=== PATIENT | male | born 1975 | race Caucasian/White ===

== ENCOUNTER 2017-10-24 19:16 | Inpatient (IN) | payer MEDICAID ==
[~2017-10-24] VITALS: Ht 170.2 cm; Wt 127.0 kg
[2017-10-25] MEDS ORDERED: SODIUM CHLORIDE 0.9% 1,000 ML IV ONE (01:40)
[2017-10-25] MEDS ORDERED: KETOROLAC 30MG/ML VIAL IV STA (01:40)
[2017-10-25 02:32] LABS: BASOPHILS % 0.3 % (0.0-2.0); EOSINOPHILS % 0.1 % (0.0-5.0); HEMATOCRIT. 35.1 % (42.0-52.0); HEMOGLOBIN. 11.8 g/dL (14.0-18.0); LYMPHOCYTES % 20.2 % (20.0-50.0); MEAN CORPUSCULAR HEMOGLOBIN 29.1 pg (28.0-32.0); MEAN CORPUSCULAR VOLUME 86.7 fL (80.0-94.0); MONOCYTES % 7.8 % (2.0-8.0); NEUTROPHILS % 71.6 % (40.0-76.0); PLATELET 239 x1000/uL (130-400); RED BLOOD CELL COUNT 4.05 mill/uL (4.7-6.1); RED CELL DISTRIBUTION WIDTH 14.2 % (11.6-14.6)
[2017-10-25 02:40] LABS: CHLORIDE 109 mEq/L (98-107)
[2017-10-25 02:47] LABS: CARBON DIOXIDE 24 mEq/L (21-32)
[2017-10-25 05:01] LABS: CLARITY URINE CLEAR (CLEAR); COLOR URINE YELLOW (YELLOW); KETONES URINE TRACE (NEGATIVE); LEUKOCYTE ESTERASE URINE NEGATIVE (NEGATIVE); NITRITE URINE NEGATIVE (NEGATIVE); OCCULT BLOOD URINE 1+ (NEGATIVE); PH URINE 5.5 (4.5-8.0); PROTEIN URINE 4+ (NEGATIVE); SPECIFIC GRAVITY URINE 1.027 (1.005-1.030); UROBILINOGEN URINE 0.2 E.U./dL (0.2-1.0)
[2017-10-25] MEDS ORDERED: ACETAMINOPHEN 325MG TABLET PO PRN (05:45)
[2017-10-25] MEDS ORDERED: ENOXAPARIN 40MG/0.4ML SYR SUBCUT SCH ×2 (05:45→11:00)
[2017-10-25] MEDS ORDERED: CLONIDINE 0.1MG TABLET PO PRN (05:45)
[2017-10-25] MEDS ORDERED: GUAIFENESIN 200MG/10ML SUGAR FREE UDC PO PRN (05:45)
[2017-10-25] MEDS ORDERED: MAGNESIUM/ALUMINUM HYDROXIDE/SIMETHICONE 30ML UDC PO PRN (05:45)
[2017-10-25] MEDS ORDERED: ONDANSETRON HCL 4MG/2ML VIAL IV PRN (05:45)
[2017-10-25] MEDS ORDERED: LORAZEPAM 2MG/ML CPJ IV PRN (05:45)
[2017-10-25] MEDS ORDERED: DOCUSATE SODIUM 100MG CAPSULE PO PRN (05:45)
[2017-10-25] MEDS ORDERED: DIPHENHYDRAMINE 50MG/ML VIAL IV PRN (05:45)
[2017-10-25] MEDS ORDERED: MORPHINE SULFATE 4 MG/ML CPJ (NOT FOR IM USE) IV PRN (05:45)
[2017-10-25] MEDS ORDERED: IPRATROPIUM/ALBUTEROL 0.5-3(2.5)MG/3ML NEB INH PRN (05:45)
[2017-10-25] MEDS ORDERED: HYDROCODONE/ACETAMINOPHEN 5/325MG TABLET PO PRN (05:45)
[2017-10-25 06:22] LABS: CARBON DIOXIDE 25 mEq/L (21-32); CHLORIDE 110 mEq/L (98-107); TROPONIN I < 0.02 ng/mL (0.00-0.04)
[2017-10-25] MEDS ORDERED: LEVOFLOXACIN 500MG PREMIX 100 ML IV NR (06:25)
[2017-10-25] MEDS: SODIUM CHLORIDE 0.45% 1,000 ML IV SCH ×2 (06:47→08:09)
[2017-10-25] MEDS: LEVOFLOXACIN 500MG PREMIX 100 ML IV SCH ×2 (06:47→08:10)
[2017-10-25 07:56] LABS: CREATINE KINASE 155 IU/L (39-308)
[2017-10-25 10:15] VITALS: BP 156/87
[2017-10-25] MEDS ORDERED: NA PHOS,M-B/NA PHOS,DI-BA ENEMA 118ML PR PRN (10:30)
[2017-10-25 10:40] VITALS: BP 156/87
[2017-10-25 10:58] VITALS: BP 156/87
[2017-10-25] MEDS: ENOXAPARIN 40MG/0.4ML SYR SUBCUT SCH ×2 (11:00→21:00)
[2017-10-25] MEDS ORDERED: INSLIS SUBCUT (11:28)
[2017-10-25] MEDS ORDERED: GABA-531 PO (11:28)
[2017-10-25] MEDS ORDERED: TRIC54 PO (11:28)
[2017-10-25 12:00] VITALS: BP 150/76
[2017-10-25] MEDS ORDERED: DEXTROSE 50% WATER 50ML SYRINGE IV PRN (13:30)
[2017-10-25] MEDS: ASPIRIN 81MG EC TABLET PO SCH (13:43)
[2017-10-25 16:00] VITALS: BP 166/84
[2017-10-25] MEDS: BLOOD SUGAR DIAGNOSTIC STRIP TEST SCH ×2 (17:13→21:11)
[2017-10-25] MEDS: INSULIN LISPRO 100 UNITS/ML SUBCUT SCH ×2 (17:30→21:20)
[2017-10-25 20:00] VITALS: BP 123/79
[2017-10-25] MEDS: AMLODIPINE 10MG TABLET PO SCH (21:00)
[2017-10-26] VITALS: BP 133/84
[2017-10-26 04:00] VITALS: BP 159/89
[2017-10-26] MEDS: BLOOD SUGAR DIAGNOSTIC STRIP TEST SCH (06:46)
[2017-10-26 07:35] LABS: BASOPHILS % 0.3 % (0.0-2.0); EOSINOPHILS % 0.9 % (0.0-5.0); HEMATOCRIT. 34.4 % (42.0-52.0); HEMOGLOBIN. 11.5 g/dL (14.0-18.0); LYMPHOCYTES % 19.1 % (20.0-50.0); MEAN CORPUSCULAR HEMOGLOBIN 28.7 pg (28.0-32.0); MEAN PLATELET VOLUME 9.2 fl (7.4-10.4); MONOCYTES % 5.3 % (2.0-8.0); NEUTROPHILS % 74.4 % (40.0-76.0); PLATELET 252 x1000/uL (130-400); RED BLOOD CELL COUNT 3.99 mill/uL (4.7-6.1)
[2017-10-26 08:00] VITALS: BP 158/89
[2017-10-26] MEDS: INSULIN LISPRO 100 UNITS/ML SUBCUT SCH (08:35)
[2017-10-26 08:39] LABS: CHLORIDE 111 mEq/L (98-107)
[2017-10-26] MEDS: ASPIRIN 81MG EC TABLET PO SCH (08:40)
[2017-10-26] MEDS: AMLODIPINE 10MG TABLET PO SCH (08:40)
[2017-10-26] MEDS: SODIUM CHLORIDE 0.45% 1,000 ML IV SCH (08:41)
[2017-10-26 08:44] LABS: CARBON DIOXIDE 20 mEq/L (21-32)
[2017-10-26] MEDS: ENOXAPARIN 40MG/0.4ML SYR SUBCUT SCH (08:44)
[2017-10-26 08:45] LABS: HDL CHOLESTEROL 33 mg/dL (40-59); LDL CHOLESTEROL 77 mg/dL (5-100)
[2017-10-26] MEDS ORDERED: LEVOFLOXACIN 250MG PREMIX 50 ML IV SCH (09:00)
[2017-10-26 10:59] VITALS: BP 158/59
[2017-10-26 12:00] VITALS: BP 149/87
[2017-10-27] MEDS ORDERED: LEVOFLOXACIN 500MG TABLET PO SCH (11:00)
[2017-10-27 19:12] LABS: ANTI-NUCLEAR ANTIBODIES DIRECT Negative (Negative)
[2017-10-28 06:12] LABS: COMPLEMENT C3 166 mg/dL (82-167)
== END 2017-10-26 12:40 | disposition home or self-care (01) | DRG 469 ==
LOC: ER 22:07 → 6EST 10-25 04:48 → EDBEDREQ 10-25 05:00
PROVIDERS: ADMIT Internal Medicine; ATTEND Internal Medicine
DX: N17.0 Acute kidney failure with tubular necrosis (principal); E43 Unspecified severe protein-calorie malnutrition; G93.41 Metabolic encephalopathy; E11.22 Type 2 diabetes mellitus with diabetic chronic kidney disease; E86.0 Dehydration; D72.829 Elevated white blood cell count, unspecified; F12.90 Cannabis use, unspecified, uncomplicated; F17.210 Nicotine dependence, cigarettes, uncomplicated; G62.9 Polyneuropathy, unspecified; I12.9 Hypertensive chronic kidney disease with stage 1 through stage 4 chronic kidney disease, or unspecified chronic kidney disease; N18.9 Chronic kidney disease, unspecified; Z79.4 Long term (current) use of insulin; Z68.41 Body mass index [BMI] 40.0-44.9, adult; Z79.899 Other long term (current) drug therapy
CPT/HCPCS: 36415; 76770; 80048; 80053; 80061; 81001; 82550; 82570; 82962; 84156; 84484; 85025; 86038; 86160; 87804; 96361; 96365; 96366; 96375; 99285; J1650; J1815; J1885; J1956; J7030

== ENCOUNTER 2018-01-08 11:37 | Emergency (ER) | payer MEDICAID ==
[~2018-01-08] VITALS: Ht 172.7 cm; Wt 128.0 kg
[~2018-01-08 11:37] MED LIST: GABA-531 PO; INSLIS SUBCUT; TRIC54 PO
[2018-01-08 12:32] LABS: CLARITY URINE CLEAR (CLEAR); COLOR URINE YELLOW (YELLOW); KETONES URINE TRACE (NEGATIVE); LEUKOCYTE ESTERASE URINE NEGATIVE (NEGATIVE); NITRITE URINE NEGATIVE (NEGATIVE); OCCULT BLOOD URINE 1+ (NEGATIVE); PROTEIN URINE 4+ (NEGATIVE); SPECIFIC GRAVITY URINE 1.035 (1.005-1.030); UROBILINOGEN URINE 0.2 E.U./dL (0.2-1.0)
[2018-01-08 12:43] LABS: BASOPHILS % 0.7 % (0.0-2.0); EOSINOPHILS % 0.6 % (0.0-5.0); HEMATOCRIT. 40.3 % (42.0-52.0); HEMOGLOBIN. 13.9 g/dL (14.0-18.0); LYMPHOCYTES % 25.7 % (20.0-50.0); MEAN CORPUSCULAR HEMOGLOBIN 29.1 pg (28.0-32.0); MEAN CORPUSCULAR VOLUME 84.2 fL (80.0-94.0); MEAN PLATELET VOLUME 9.2 fl (7.4-10.4); PLATELET 342 x1000/uL (130-400); RED BLOOD CELL COUNT 4.78 mill/uL (4.7-6.1); RED CELL DISTRIBUTION WIDTH 14.4 % (11.6-14.6)
[2018-01-08 12:54] LABS: CHLORIDE 103 mEq/L (98-107)
[2018-01-08] MEDS ORDERED: ONDANSETRON HCL 4MG/2ML VIAL IV STA (14:01)
[2018-01-08] MEDS ORDERED: FAMOTIDINE 20MG/2ML VIAL IV STA (14:01)
[2018-01-08] MEDS ORDERED: KETOROLAC 30MG/ML VIAL IV ONE (14:15)
[2018-01-08 15:32] VITALS: BP 172/93
== END 2018-01-08 16:42 | disposition home or self-care (01) ==
LOC: ER 14:13
DX: R10.13 Epigastric pain (principal); K92.0 Hematemesis; I10 Essential (primary) hypertension; E11.9 Type 2 diabetes mellitus without complications; K80.70 Calculus of gallbladder and bile duct without cholecystitis without obstruction; Z79.4 Long term (current) use of insulin; K76.0 Fatty (change of) liver, not elsewhere classified; D64.9 Anemia, unspecified
CPT/HCPCS: 36415; 71045; 76705; 80053; 81003; 83690; 83880; 84484; 85025; 85610; 93005; 96374; 96375; 99285; J1885; J2405; J3490

== ENCOUNTER 2018-04-08 15:12 | Inpatient (IN) | payer MEDICAID ==
[~2018-04-08] VITALS: Ht 172.7 cm; Wt 111.8 kg
[2018-04-08] MEDS ORDERED: MORPHINE SULFATE 4 MG/ML CPJ (NOT FOR IM USE) IV STA (15:33)
[2018-04-08] MEDS ORDERED: ONDANSETRON HCL 4MG/2ML VIAL IV STA (15:33)
[2018-04-08] MEDS ORDERED: FAMOTIDINE 20MG/2ML VIAL IV STA (15:33)
[2018-04-08] MEDS ORDERED: SODIUM CHLORIDE 0.9% 1,000 ML IV ONE (15:33)
[2018-04-08 16:12] LABS: BASOPHILS % 0.3 % (0.0-2.0); EOSINOPHILS % 0.1 % (0.0-5.0); HEMATOCRIT. 35.2 % (42.0-52.0); HEMOGLOBIN. 12.1 g/dL (14.0-18.0); MEAN CORPUSCULAR HEMOGLOBIN 29.5 pg (28.0-32.0); MEAN CORPUSCULAR VOLUME 85.6 fL (80.0-94.0); MEAN PLATELET VOLUME 8.5 fl (7.4-10.4); MONOCYTES % 1.9 % (2.0-8.0); NEUTROPHILS % 87.7 % (40.0-76.0); PLATELET 317 x1000/uL (130-400); RED BLOOD CELL COUNT 4.11 mill/uL (4.7-6.1); RED CELL DISTRIBUTION WIDTH 13.7 % (11.6-14.6)
[2018-04-08 16:14] LABS: BG BASE EXCESS 2.9 mmol/L (-2.0-2.0); BG CARBOXYHEMOGLOBIN 0.3 % (0.5-1.5); BG DEOXYHEMOGLOBIN 4.5 % (0.0-5.0); BG FRACTION INSPIRED OXYGEN 21; BG HCO3 ACT 26.5 mmol/L (22.0-26.0); BG METHEMOGLOBIN 0.1 % (0.0-1.5); BG OXYGEN SATURATION 95.5 % (92.0-98.5); BG OXYHEMOGLOBIN 95.1 % (94.0-97.0); BG PCO2 37.3 mmHg (35.0-45.0); BG PO2 76.2 mmHg (75.0-100.0); BG SAMPLE SITE RIGHT RADIAL; BG TOTAL HEMOGLOBIN 12.4 g/dL (12.0-18.0); BG VENT MODE ROOM AIR
[2018-04-08 16:19] LABS: CHLORIDE 107 mEq/L (98-107); PROTHROMBIN TIME 10.6 sec (9.4-11.6)
[2018-04-08 16:26] LABS: ETHANOL BLOOD < 10 mg/dL
[2018-04-08 16:27] LABS: BETA HYDROXYBUTYRATE 0.1 mMol/L (0.0-0.3)
[2018-04-08 17:18] LABS: CLARITY URINE CLEAR (CLEAR); COLOR URINE YELLOW (YELLOW); KETONES URINE NEGATIVE (NEGATIVE); LEUKOCYTE ESTERASE URINE NEGATIVE (NEGATIVE); NITRITE URINE NEGATIVE (NEGATIVE); OCCULT BLOOD URINE 1+ (NEGATIVE); PH URINE 6.5 (4.5-8.0); PROTEIN URINE 4+ (NEGATIVE); SPECIFIC GRAVITY URINE 1.023 (1.005-1.030); UROBILINOGEN URINE 0.2 E.U./dL (0.2-1.0)
[2018-04-08] MEDS ORDERED: HYDRALAZINE 20MG/ML VIAL IV ONE (17:30)
[2018-04-08 17:39] LABS: *AMPHETAMINES SCREEN URINE NEGATIVE (NEGATIVE); *BENZODIAZEPINES SCREEN URINE NEGATIVE (NEGATIVE); *COCAINE SCREEN URINE PRESUMTIVE POSITIVE (NEGATIVE); METHADONE URINE SCREEN NEGATIVE (NEGATIVE)
[2018-04-08 17:40] LABS: CANNABINOID URINE SCREEN PRESUMTIVE POSITIVE (NEGATIVE); OPIATES URINE SCREEN NEGATIVE (NEGATIVE); PHENCYCLIDINE URINE SCREEN NEGATIVE (NEGATIVE)
[2018-04-08 17:46] LABS: *BARBITURATES SCREEN URINE NEGATIVE (NEGATIVE)
[2018-04-08 21:15] VITALS: BP 206/105
[2018-04-08 21:17] VITALS: BP 199/104
[2018-04-09] VITALS (7 sets, daily range): BP systolic 165–187; BP diastolic 87–108
[2018-04-09] MEDS ORDERED: HYDROMORPHONE HCL/PF 2MG/ML CPJ IV PRN (00:15)
[2018-04-09] MEDS ORDERED: ACETAMINOPHEN 325MG TABLET PO PRN (00:15)
[2018-04-09] MEDS ORDERED: ONDANSETRON HCL 4MG/2ML VIAL IV PRN (00:15)
[2018-04-09] MEDS ORDERED: DEXTROSE 50% WATER 50ML SYRINGE IV PRN (00:45)
[2018-04-09] MEDS: BLOOD SUGAR DIAGNOSTIC STRIP TEST SCH ×4 (07:49→20:11)
[2018-04-09] MEDS: INSULIN LISPRO 100 UNITS/ML SUBCUT SCH ×4 (07:50→20:15)
[2018-04-09] MEDS: AMLODIPINE 10MG TABLET PO SCH (10:46)
[2018-04-09] MEDS: DEXT 5%/0.45% NACL 1000ML 1,000 ML IV SCH (13:29)
[2018-04-09] MEDS: HYDROCODONE/ACETAMINOPHEN 5/325MG TABLET PO PRN ×2 (13:30→20:11)
[2018-04-10 04:30] VITALS: BP 205/103
[2018-04-10] MEDS: DEXT 5%/0.45% NACL 1000ML 1,000 ML IV SCH (04:32)
[2018-04-10] MEDS: HYDROCODONE/ACETAMINOPHEN 5/325MG TABLET PO PRN ×2 (05:40→11:23)
[2018-04-10 05:41] VITALS: BP 180/100
[2018-04-10] MEDS: AMLODIPINE 10MG TABLET PO SCH (06:01)
[2018-04-10 06:29] LABS: BASOPHILS % 0.5 % (0.0-2.0); EOSINOPHILS % 0.9 % (0.0-5.0); HEMATOCRIT. 36.8 % (42.0-52.0); HEMOGLOBIN. 12.7 g/dL (14.0-18.0); LYMPHOCYTES % 25.6 % (20.0-50.0); MEAN CORPUSCULAR HEMOGLOBIN 29.5 pg (28.0-32.0); MEAN CORPUSCULAR VOLUME 85.6 fL (80.0-94.0); MEAN PLATELET VOLUME 8.7 fl (7.4-10.4); MONOCYTES % 5.2 % (2.0-8.0); NEUTROPHILS % 67.8 % (40.0-76.0); PLATELET 325 x1000/uL (130-400); RED CELL DISTRIBUTION WIDTH 13.5 % (11.6-14.6)
[2018-04-10] MEDS: BLOOD SUGAR DIAGNOSTIC STRIP TEST SCH ×2 (06:29→11:23)
[2018-04-10 07:03] VITALS: BP 205/103
[2018-04-10 07:07] LABS: CHLORIDE 106 mEq/L (98-107)
[2018-04-10 07:50] VITALS: BP 183/92
[2018-04-10] MEDS: INSULIN LISPRO 100 UNITS/ML SUBCUT SCH ×2 (08:16→12:36)
[2018-04-10] MEDS ORDERED: CLONIDINE 0.1MG TABLET PO PRN (08:45)
[2018-04-10] MEDS ORDERED: AMLODIPINE 10MG TABLET PO SCH (09:20)
[2018-04-10 11:18] VITALS: BP 147/86
[2018-04-10 12:17] VITALS: BP 147/86
== END 2018-04-10 15:11 | disposition home or self-care (01) | DRG 199 ==
LOC: ER 15:12 → 6WST 18:38 → ENRESERV 18:38
PROVIDERS: ADMIT Hospitalist; ATTEND Hospitalist
DX: I16.1 Hypertensive emergency (principal); E43 Unspecified severe protein-calorie malnutrition; K85.90 Acute pancreatitis without necrosis or infection, unspecified; N17.9 Acute kidney failure, unspecified; E11.22 Type 2 diabetes mellitus with diabetic chronic kidney disease; I12.9 Hypertensive chronic kidney disease with stage 1 through stage 4 chronic kidney disease, or unspecified chronic kidney disease; N18.9 Chronic kidney disease, unspecified; Z79.4 Long term (current) use of insulin; Z79.899 Other long term (current) drug therapy
CPT/HCPCS: 36415; 36600; 71045; 74176; 80053; 80305; 81003; 82010; 82375; 82805; 82962; 83605; 83690; 83880; 84484; 85025; 85610; 87040; 87086; 93005; 93970; 96361; 96374; 96375; 99285; G0482; J0360; J1815; J2270; J2405; J3490; J7030